=== PATIENT | female | born 1970 | race Caucasian/White ===

== ENCOUNTER → 2019-12-24 15:15 | Outpatient (CLI) | payer OTHER, SELFPAY ==
--- NOTE | 2019-12-24 15:18 | BI_ITS ---
MAMMOGRAPHY - BILATERAL SCREENING 3-D TOMOSYNTHESIS REASON FOR EXAM: Female, 49 years old. Routine screening PERTINENT HISTORY: FM HX MAT GMA 50''S, MAT AUNT 40, GAIN 20#, PT HAS HINDRONITIS -OIL GLAND CLOG - SEVERAL AREAS ON BREAST HEALING/SCARS. TECHNIQUE: 2-D mammograms and 3-D Tomosynthesis of the breast (s) were performed. CAD was performed. COMPARISON: 08/28/2017 FINDINGS: The breast composition is composed of scattered fibroglandular density. Stable pattern of more dense fiber glandular tissue in the right breast than the left. Scattered benign calcifications are seen. No dense spiculated masses or suspicious microcalcifications are identified. No architectural distortion is identified. There is no skin thickening or retraction. There has been no significant change since the prior study. BI/SCREEN MAMM (CAD) W/AUGUST BILAT IMPRESSION: No mammographic signs of malignancy. Routine yearly mammograms recommended. ASSESSMENT CATEGORY: BIRADS Category 2: Benign. A letter regarding these results will be sent to the patient by the facility within 30 days. FOLLOW UP RECOMMENDATION: Yearly follow up mammogram recommended. (A) Approximately 10% of breast cancers are not detected by mammography. A normal mammogram should not delay biopsy of a clinically suspicious abnormality. Electronically Signed: Isiah Manning MD at 10:32 EDT , Service support ,
== END ==
PROVIDERS: PCP Family Medicine; Referring Provider Registered Nurse; Visit Provider Registered Nurse
DX: Z12.31 Encounter for screening mammogram for malignant neoplasm of breast (principal)
CPT/HCPCS: 77063; 77067

== ENCOUNTER → 2020-12-29 11:05 | Outpatient (CLI) | payer OTHER, SELFPAY ==
--- NOTE | 2020-12-29 11:15 | MRI_ITS ---
STUDY: MRI RIGHT KNEE REASON FOR EXAM: Female, 50 years old. Anterior medial knee pain. Instability. Satin a pop. TECHNIQUE: Standardized fat and water weighted pulse sequences were obtained in all 3 orthogonal planes. COMPARISON: None. FINDINGS: Patellofemoral articular cartilage preserved. Lateral compartment articular cartilage preserved. Medial grade 2/3 cartilage loss. No acute fracture, dislocation or bone destruction. Lateral meniscus intact. Medial meniscal body/posterior horn oblique tear with small cyst formation (sagittal images 19 through 21 series 4 and coronal image 17). Region of cysts measures approximately 4 mm x 3 mm. Small volume joint effusion. No popliteal cyst. Mild soft tissue swelling. Normal medial collateral ligamentous complex (MCL). Normal distal semimembranosus, gracilis and semitendinosus tendons. Normal proximal tibiofibular articulation. Normal lateral collateral (fibular) ligament. Normal popliteus tendon. Normal biceps femoris tendon. Normal anterior cruciate ligament (ACL). Normal posterior cruciate ligament (PCL). Normal medial and lateral patellar retinaculum. Normal quadriceps tendon. Normal patellar tendon. Normal Hoffa''s fat pad. MRI/Lower Ext Joint Only (Routine) IMPRESSION: Medial meniscus body/posterior horn tear with small cyst formation Medial compartment mild/moderate cartilage loss Small joint effusion and mild swelling Electronically Signed: Wilbert Sandhu DO at 13:45 EDT Tel , Service support ,
== END ==
PROVIDERS: PCP Family Medicine; Visit Provider Orthopaedic Surgery
DX: M25.561 Pain in right knee (principal)
CPT/HCPCS: 73721

== ENCOUNTER → 2021-01-07 10:52 | Outpatient (CLI) | payer OTHER, SELFPAY ==
--- NOTE | 2021-01-07 10:58 | EKG12_ITS ---
Test Reason : PRE OP Blood Pressure : / mmHG Vent. Rate : 068 BPM Atrial Rate : 068 BPM P-R Int : 144 ms QRS Dur : 080 ms QT Int : 412 ms P-R-T Axes : 021 010 024 degrees QTc Int : 438 ms Normal sinus rhythm Normal ECG Confirmed by VIRGIE AYALA, WON ([id number]), commercial production editor JULIET MCCLENDON ([id number]) on 01/11/2021 8:27:13 AM Referred By: Radha Munson Confirmed By:JACQUELYN GARVIN MD
--- NOTE | 2021-01-07 10:58 | RAD_ITS ---
INDICATION: PREOP WASC EXAMINATION/TECHNIQUE: X-RAY - XR Chest 2 Views COMPARISON: 05/24/2017. FINDINGS: LINES/DEVICES: None. LUNGS: No consolidation, edema or effusion. No pneumothorax. MEDIASTINUM AND CARDIOVASCULAR STRUCTURES: Cardiac silhouette not enlarged. Central airways and mediastinal contour are unremarkable. BONES AND SOFT TISSUES: Unremarkable. RAD/Chest PA and Lateral IMPRESSION: No radiographic evidence of acute cardiopulmonary disease. Electronically Signed: Peter Serrano MD at 12:33 EDT Tel , Service support ,
[2021-01-07 12:26] LABS: Absolute Lymphocyte Count 1.98 X10^3/uL (0.83-4.51); Absolute Neutrophil Count 5.9 X10^3/uL (2.0-7.7); Basophil# 0.06 X10^3/uL; Basophil% 0.7 % (0-1); Eosinophil# 0.12 X10^3/uL; Eosinophils% 1.4 % (0-5); Hematocrit 42.2 % (37-47); Hemoglobin 13.9 g/dL (12.0-15.0); Lymphocyte # 1.98 X10^3/ul (0.83-4.51); Lymphocyte % 23.1 % (19-41); Mean Corp Hgb Conc 32.9 g/dL (32-36); Mean Corpuscular Volume 90.9 fL (81-99); Mean Platelet Vol. 10.3 fl (6.2-12.0); Monocyte# 0.53 X10^3/uL; Monocyte% 6.2 % (0-10); NRBC Flagged by Analyzer 0 % (0-5); Neutrophil # 5.87 X10^3/uL (2.7-7.7); Neutrophil % 68.3 % (47-70); Platelet Count 365 K/mm3 (150-450); RBC Distribution Width CV 12.9 % (11.6-14.6); RBC Distribution Width SD 42.5 fl (35.1-43.9); Red Blood Count 4.64 M/mm3 (4.2-5.4); White Blood Count 8.6 K/mm3 (4.4-11.0)
[2021-01-07 12:47] LABS: Anion Gap 2 (5-15); BUN 14 mg/dL (7-18); BUN/Creat Ratio 14.7 RATIO (10-20); Calcium,Total 9.2 mg/dL (8.5-10.1); Chloride 109 mmol/L (98-107); Creatinine, Serum 0.95 mg/dL (0.55-1.02); EST Glomerular Filtration Rate 65 mL/min (>60); Est Glom Filt Rate - Afr Amer 79 mL/min (>60); Glucose 94 mg/dL (74-106); Potassium 3.8 mmol/L (3.5-5.1); Sodium Level 141 mmol/L (136-145)
== END ==
PROVIDERS: PCP Family Medicine; Referring Provider Physician Assistant Surgical; Visit Provider Physician Assistant Surgical
DX: Z11.59 Encounter for screening for other viral diseases (principal); Z01.810 Encounter for preprocedural cardiovascular examination; Z01.818 Encounter for other preprocedural examination; U07.1 COVID-19
CPT/HCPCS: 36415; 71046; 80048; 85025; 87635; 93005; C9803; U0005; U0003

== ENCOUNTER 2021-11-25 11:30 | Outpatient (RCR) | payer OTHER, SELFPAY ==
--- NOTE | 2021-09-12 18:44 | HP.PTEVAL ---
Patient's Visit Information IVON JUAREZ is a 51 year old F referred to Physical Therapy by Dr. Doni Ramirez DO with a diagnosis of RAO KNEE OA. Date of Evaluation: 09/09/21 Physical Therapist: Sonali Lewis PT, Cert MDT - Visit Plan Frequency: 2x /Week Duration: 3 Months Plan: START SLOW AND TEST RE-ENTRY ONTO LAND AFTER FIRST 5-10 MINUTES (CASE CONFERENCE WITH AQUATIC CAR ESCORT TODAY). AQUATIC THERAPY FOR PAIN RELEIF, POSTURE CORE STRENGTHENING, GAIT TRAINING AND RAO LE ROM, STRETCHING AND STRENGTHENING. HEP INSTRUCTION. 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 LIFTS 45 TO 50 LBS. 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 STANDING AND WALKING. CURRENTLY OFF WORK FOR KNEES. HAS NOT WORKED SINCE DEC 22 2020 AND IS NOW ON [employer] THROUGH WORK. DISABILITY INTERVIEW PENDING NEXT WEEK. HAS BEEN THERE 13 YEARS. PATIENT REPORTS GOAL IS TO TRY TO RETURN TO CURRENT JOB. Present symptoms: CONSTANT RIGHT KNEE PAIN > LEFT. Present since: ~DEC 2018. Pain Scale: WORST 7/10, LEAST 3-4/10. Currently: 3/10. Commenced as a result of: RAN OFF PORCH STEPS AND CAME DOWN ON R KNEE WRONG AND FELT A SNAP/BURN. Worse: MOVING IN GENERAL, WIGGLING FOOT TO PUT IT IN TENNIS SHOE, GETTING TOE CAUGHT ON RUG. Better: NOTHING. Disturbed sleep: YES. Previous history/Previous treatment: DEC 2020 R KNEE MENISECTOMY PER PATIENT REPORT. CURRENTLY DOING LAND PT ONCE A WEEK AT [facility] AND PLANS TO CONTINUE (BRIDGET SETH X 2 VISITS). PATIENT REPORTS SHE HAS NERVE DAMAGE, PAIN AND SWELLING R LE FROM R KNEE SURGERY. PATIENT REPORTS SEEING DR. HEMPHILL AT [facility] AND TKR NOT RECOMMENDED. ALSO REPORTS HAVING SEEN DR. NORMAN - [facility] AND RECEIVING KNEE INJECTIONS JULY [address] HOLGUIN THAT DID NOT HELP. Gait: KNEES CRACK AND POP R>L. PAINFUL. NEAR FALLS FROM PAIN. Bowel or Bladder Dysfunction: PATIENT DENIES. Accidents: NO. Unexplained weight loss: NO. Imaging: RAO KNEE OA. PMH/Recent major surgery: FIRBROMYALGIA, HTN. OTHER: REPORTS SHE IS CURRENTLY IN A MAJOR FIBRO FLARE. PATIENT REPORTS HER LOW BACK DOESN'T HURT BUT SHE FEELS HEAT LEFT LOW BACK. SEES DR. PELLAGRINO FOR FIBROMYALGIA. - Objective Sitting/Standing Posture: POOR. STANDS IN ANTERIOR PELVIC TILT. Other Observations: THIS PATIENT AMBULATES INDEP'LY INTO PT WITH DECREASED CADANCE AND LIMPING ON HER RIGHT LE. Sensory deficit: HYPERSENSATIVITY WITH LIGHT TOUCH SENSATION TESTING RAO LE'S. ROM deficit: R KNEE AROM IN SUPINE WITH A HEEL SLIDE -20 EXT TO 80 DEG FLEX, L KNEE FULL EXT TO 95 DEG FLEX. Motor deficit: R LE: HIP 4-/5, KNEE 3-/5, ANKLE 5/5. L LE: HIP 4/5, KNEE 4-/5, ANKLE 5/5. Core strength: POOR. Circumference Measurements: PATELLA: R 55 CM, L 47 CM. 6 ABOVE PATELLA: R 67 CM, L 64.5 CM. Palpation: PATIENT REFUSED. - Balance/Special Test Scores Lower Extremity Functional Score: 21 - Goals Goal 1:: DECREASE C/O RAO KNEE PAIN Goal Time Frame: 4-6 Weeks Goal 2:: INCREASE PAINFREE ROM OF RAO KNEES TO EASE ADL'S. Goal Time Frame: 4-6 Weeks Goal 3:: INCREASE RAO LE STRENGTH TO EASE ADL'S. Goal Time Frame: 4-6 Weeks Goal 4:: PATIENT WILL BE INDEP WITH HOME AND WATER EX PROGRAMS FOR CONTINUED IMPROVEMENT ONCE FORMAL PHYSICAL THERAPY CONCLUDES. Goal Time Frame: 4-6 Weeks - Anticipated Interventions Patient/Client Instruction: Educate patient on: Condition, Plan of Care, Risk Factors For the Purpose of:: To improve self management Therapeutic Exercise to Include: Strength training, Flexibilty training, Gait and locomotor training, Neuromotor development, In an aquatic setting For the Purpose of:: To decrease pain, To increase ROM, To improve muscle performance and motor function, To increase tolerance to activity/condition/position, To improve ability of physical actions for home/community/work/leisure, To improve gait and locomotor functions Thank you for the opportunity to evaluate your patient. For Medicare and Medicare HMO plans, please review the plan of care and approve it. It will need to be FAXED BACK to us at [phone] for Medicare purposes. For Medicare only, by signing this I certify the plan of care. Please let me know if there are questions or concerns regarding this plan of care. Physician Signature: Date:
--- NOTE | 2021-10-24 14:07 | HP.PTREVAL ---
Dr. Doni Ramirez, DO, It has been my pleasure to treat IVON JUAREZ over the last 11 visits for RAO KNEE OA. Please see the progress note below for an update on the physical therapy plan of care! Subjective: PATIENT REPORTS THAT THE STIFFNESS IN HER LEFT KNEE HAS IMPROVED SINCE STARTING POOL THERAPY. PATIENT REPORTS HER RIGHT KNEE ISN'T ANY BETTER OVER-ALL (EXCEPT MAYBE THE SWELLING). PATIENT REPORTS HER BACK AND KNEES FEEL BETTER WHILE SHE IS IN THE POOL BUT ALMOST ALL HER PROBLEMS RETURN WHEN SHE GETS BACK ON LAND. PATIENT DENIES ANY INCREASED PAIN OR PROBLEMS SINCE STARTING AQUATIC THERAPY. PATIENT REPORTS HER MOM THINKS POOL THERAPY IS HELPING HER BECAUSE IT LOOKS TO HER LIKE SHE IS GETTING AROUND A LITTLE BETTER. Objective/Function: PATIENT WAS SEEN TODAY FOR RE-ASSESSMENT OF PROGRESS TOWARD THE SET PT GOALS AND THE NEED FOR FURTHER PHYSICAL THERAPY VS READINESS FOR DISCHARGE. PATIENT WITH LESS LE SENSATIVITY AND DECREASED CIRCUMFERENCE MEASUREMENTS TODAY. L KNEE DECREASED FLEXION TODAY COMPARED TO INITIAL EVAL BUT OVER-ALL PATIENT IS REPORTING LESS L KNEE STIFFNESS. PATIENT APPEARS TO BE A GOOD CANDIDATE TO CONTINUE AQUATIC THERAPY BASED ON PROGRESS AND ROOM FOR MORE PROGRESS AND EX PROGRESSION BEFORE DISCHARGING TO [facility] PROGRAM. PATIENT IS AGREEABEL. UPON EXAM TODAY: Sitting/Standing Posture: POOR. STANDS IN ANTERIOR PELVIC TILT. Other Observations: THIS PATIENT AMBULATES INDEP'LY INTO PT WITH DECREASED CADANCE AND LIMPING ON HER RIGHT LE. Sensory deficit: HYPERSENSATIVITY WITH LIGHT TOUCH SENSATION TESTING RAO LE' BUT PATIENT LESS RELUCTANT WITH TESTING TODAY. ROM deficit: R KNEE AROM IN SUPINE WITH A HEEL SLIDE -16 EXT TO 81 DEG FLEX, L KNEE FULL EXT TO 80 DEG FLEX. Motor deficit: R LE: HIP 4-/5, KNEE 3-/5, ANKLE 5/5. L LE: HIP 4/5, KNEE 4-/5, ANKLE 5/5. RAO EHL 5/5. Core strength: POOR. Circumference Measurements: PATELLA: R 49 CM, L 46 CM. 6 ABOVE PATELLA: R 65.5 CM, L 63.5 CM. Plan Plan: CONTINUE AQUATIC THERAPY 2X'S A WEEK X 3-4 WEEKS TO PROGRESS [facility] PROGRAM TOLERATED WORKING TOWARD SAME GOALS. Balance/Gait/Functional tests - Balance/Special Test Scores Lower Extremity Functional Score: 20 Goals Goal 1:: DECREASE C/O RAO KNEE PAIN Goal Time Frame: 4-6 Weeks Goal Progress: Not Progressing Goal 2:: INCREASE PAINFREE ROM OF RAO KNEES TO EASE ADL'S. Goal Time Frame: 4-6 Weeks Goal Progress: Not Progressing Goal 3:: INCREASE RAO LE STRENGTH TO EASE ADL'S. Goal Time Frame: 4-6 Weeks Goal Progress: Not Progressing Goal 4:: PATIENT WILL BE INDEP WITH HOME AND WATER EX PROGRAMS FOR CONTINUED IMPROVEMENT ONCE FORMAL PHYSICAL THERAPY CONCLUDES. Goal Time Frame: 4-6 Weeks Goal Progress: Progressing Anticipated Interventions Patient/Client Instruction: Educate patient on: Condition, Plan of Care, Risk Factors For the Purpose of:: To improve self management Therapeutic Exercise to Include: Strength training, Flexibilty training, Gait and locomotor training, Neuromotor development, In an aquatic setting For the Purpose of:: To decrease pain, To increase ROM, To improve muscle performance and motor function, To increase tolerance to activity/condition/position, To improve ability of physical actions for home/community/work/leisure, To improve gait and locomotor functions Please do not hesitate to contact me at [phone] by phone or if you have questions or concerns regarding this new plan of care! Sincerely, Sonali Lewis, PT, Cert MDT
--- NOTE | 2021-11-25 12:11 | HP.PTDCSUM ---
It has been my pleasure to treat IVON JUAREZ referred by Dr. Doni Ramirez DO, with the diagnosis of RAO KNEE OA for a total of 18 visit(s). Discharge Date: 11/25/21 Please see the following information for a summary of their discharge status. Subjective: PATIENT REPORTS SHE NO LONGER PLANS TO GO BACK TO HER PRIOR JOB BASED ON PHYSICIAN RECOMMENDATIONS. SHE PLANS TO LOOK FOR LESS PHYSICAL WORK AT THIS POINT. PATIENT REPORTS SHE IS GLAD SHE CONTINUED WATER THERAPY AND NOW FEELS READY TO CONTINUE ON HER OWN. RLE Pain Intensity (Out of 10): 6 LLE Pain Intensity (Out of 10): 6 Lumbar Spine Pain Intensity (Out of 10): 3 % Improvement: 20 Objective/Function: PATIENT WAS SEEN TODAY FOR RE-ASSESSMENT OF PROGRESS TOWARD THE SET PT GOALS AND THE NEED FOR FURTHER PHYSICAL THERAPY VS READINESS FOR DISCHARGE. RAO KNEE SWELLING SHOWES DECREASE WITH CIRCUMFRENCE MEASUREMENTS BELOW AND HER KNEES ARE BENDING A LITTLE BETTER BUT OVER ALL LE FUNCTIONAL STRENGTH AND ROM IS NOT CHANGING SIGNIFICANTLY. SHE IS INDEP WITH A WATER EX PROGRAM. UPON EXAM TODAY: Sitting/Standing Posture: POOR. STANDS IN ANTERIOR PELVIC TILT. Other Observations: THIS PATIENT AMBULATES INDEP'LY INTO PT WITH DECREASED CADANCE AND LIMPING ON HER RIGHT LE. Sensory deficit: PATIENT STILL HAS SENSATIVITY WITH SENSATION TESTING OF RAO LE'S BUT OVER ALL HAS IMPROVED SINCE STARTING PT (EXCEPT R FOOT - TOE FX). ROM deficit: R KNEE AROM IN SUPINE WITH A HEEL SLIDE -16 EXT TO 84 DEG FLEX, L KNEE FULL EXT TO 85 DEG FLEX. Motor deficit: R LE: HIP 4-/5, KNEE 3-/5, ANKLE 5/5. L LE: HIP 4/5, KNEE 4-/5, ANKLE 5/5. RAO EHL 5/5. Core strength: POOR. Circumference Measurements: PATELLA: R 46.5 CM, L 43CM. 6 ABOVE PATELLA: R 64.5 CM, L 63.0 CM. Goal 1:: DECREASE C/O RAO KNEE PAIN Goal Progress: Not Progressing Goal 2:: INCREASE PAINFREE ROM OF RAO KNEES TO EASE ADL'S. Goal Progress: Not Progressing Goal 3:: INCREASE RAO LE STRENGTH TO EASE ADL'S. Goal Progress: Not Progressing Goal 4:: PATIENT WILL BE INDEP WITH HOME AND WATER EX PROGRAMS FOR CONTINUED IMPROVEMENT ONCE FORMAL PHYSICAL THERAPY CONCLUDES. Goal Progress: Goal Met Plan: D/C TO INDEP WATER EX. PATIENT IS AGREEABLE. If there are questions or concerns regarding this patient's physical therapy, please feel free to call me at [phone]. Thank you for the referral of this patient. Sincerely, Sonali Lewis, PT, Cert MDT Balance/Gait/Functional tests - Balance/Special Test Scores Lower Extremity Functional Score: 20
== END 2021-11-25 13:40 | disposition home or self-care (01) ==
LOC: PT 11:30
PROVIDERS: PCP Family Medicine; Referring Provider Orthopaedic Surgery; Visit Provider Orthopaedic Surgery
DX: M17.0 Bilateral primary osteoarthritis of knee (principal)
CPT/HCPCS: 97113; 97162; 97164

== ENCOUNTER 2022-07-08 15:03 | Emergency (ER) | payer MEDICAID, SELFPAY ==
[2022-07-08 15:04] VITALS: BP 134/116; PULSE 83; RESP 18; TEMP 36.3; O2SAT 98; BMI 38.2
--- NOTE | 2022-07-08 15:17 | ED.VIS.FEGU ---
HPI <HELDER Orr - Last Filed: 07/08/22 15:57> HPI - Female History of Present Illness Chief Complaint: Complaint Narrative Narrative: 52-year-old female presents with 4 days of slight burning with urination. Yesterday after wiping she noticed a pink tinge on the toilet paper. Today she started having blood clots with urination and pressure from her umbilical area to the suprapubic region. She went to urgent care and UA showed blood and she was sent here. She took some old Pyridium she had on hand which helped her symptoms. PFSH <HELDER Orr - Last Filed: 07/08/22 15:57> [facility] Medical History (Updated 07/08/22 @ 15:49 by HELDER Orr) depo progesterone Ectopic Hiatal hernia reflux endoscopy dwayneNovember 2010 neg Home Medications dextroamphetamine-amphetamine ER 30 mg 24hr capsule,extend release (Adderall XR) 30 mg PO DAILY 05/24/17 [History Last Taken 05/23/17] duloxetine 60 mg capsule,delayed release 60 mg PO DAILY 05/24/17 [History Last Taken 05/23/17] omeprazole 20 mg capsule,delayed release 20 mg PO DAILY 05/24/17 [History Last Taken 05/23/17] tizanidine 4 mg tablet 4 mg PO DAILY 05/24/17 [History Last Taken 05/23/17] cephalexin 500 mg capsule 500 mg PO Q12 #14 CAPSULES 07/08/22 [Rx Last Taken Unknown] phenazopyridine 100 mg tablet (Pyridium) 100 mg PO TID 2 days #6 tabs 07/08/22 [Rx Last Taken Unknown] Allergy/AdvReac Type Severity Reaction Status Date / Time Opioids - Morphine Analogues AdvReac Nausea Verified 07/08/22 15:07 [narcotics] Family History Other Breast cancer Hypertension Migraine Prostate cancer Surgical History (Updated 07/08/22 @ 15:12 by Dat Pratt) H/O: hysterectomy Social History Smoking Status: Former smoker ROS <HELDER Orr - Last Filed: 07/08/22 15:57> ROS ED ROS Narrative Constitutional: Negative for fever, chills, malaise. CVS: Negative for palpitations, chest pain, syncope. Respiratory: Negative for shortness of breath, cough. GI: Positive for abdominal pain. Negative for nausea, vomiting, diarrhea, constipation, melena, hematochezia. : Positive for dysuria, hematuria. Skin: Negative for rash, abscess, or wound. EXAM <HELDER Orr - Last Filed: 07/08/22 15:57> Physical Exam Narrative Exam Narrative: CONST: Patient sitting in no acute distress. EYES: Normal inspection. NECK: Normal inspection. RESP: No respiratory distress, CTAB. CVS: Regular rate and rhythm, no murmur, no gallop. ABD: Soft with minimal suprapubic tenderness, no guarding or rebound, nondistended. Back: Normal inspection, no CVA tenderness. SKIN: Color normal, no rash, warm, dry, intact. EXTREMITIES: Normal appearance, no pedal edema. NEURO: Oriented x4. PSYCH: Normal affect. Const Vital Signs: 07/08/22 15:04 07/08/22 15:57 Temperature 97.4 F L 97.8 F Temperature Source Temporal Pulse Rate 83 78 Respiratory Rate 18 16 Blood Pressure 134/116 H 134/78 H Blood Pressure Mean 122 Pulse Ox 98 100 Oxygen Delivery Method Room Air <Dr. Dino Ayala MD - Last Filed: 07/08/22 16:08> Physical Exam Const Vital Signs: 07/08/22 15:04 07/08/22 15:57 Temperature 97.4 F L 97.8 F Temperature Source Temporal Pulse Rate 83 78 Respiratory Rate 18 16 Blood Pressure 134/116 H 134/78 H Blood Pressure Mean 122 Pulse Ox 98 100 Oxygen Delivery Method Room Air MDM <HELDER Orr - Last Filed: 07/08/22 15:57> [facility] Narrative Medical decision making narrative: Patient has dysuria with hematuria and blood clots. She appears well and nontoxic with normal vital signs. She has slight suprapubic tenderness on exam with an otherwise benign abdominal exam. No CVA tenderness. UA is nitrite positive with > 100 red and white blood cells consistent with hemorrhagic cystitis. Urine cultures pending. I do not think she has a kidney stone or pyelonephritis as she has no flank pain or tenderness on exam. I prescribed Keflex and Pyridium with first dose given here. She was discharged in stable condition. Test considered but not ordered: Considered a CT flank but she has no signs or symptoms of kidney stone or pyelonephritis. Lab Data Labs: Laboratory Results - last 24 hr 07/08/22 15:30 Urine Color SEE COMMENT BELOW Urine Clarity Cloudy Urine pH 5.0 Ur Specific [place] 1.020 Urine Protein 100 H Urine Glucose (UA) Normal Urine Ketones Negative Urine Occult Blood 250 H Urine Nitrite Positive H Urine Bilirubin 6 H Urine Urobilinogen 8 H Ur Leukocyte Esterase 25 H Urine RBC > 100 SEEN Urine WBC >100 SEEN Ur Squamous Epith Cells 0-5 SEEN Urine Bacteria RARE Urine Mucus 0 SEEN <Dr. Dino Ayala MD - Last Filed: 07/08/22 16:08> [facility] MDM Narrative Medical decision making narrative: Patient has dysuria with hematuria and blood clots. She appears well and nontoxic with normal vital signs. She has slight suprapubic tenderness on exam with an otherwise benign abdominal exam. No CVA tenderness. UA is nitrite positive with > 100 red and white blood cells consistent with hemorrhagic cystitis. Urine cultures pending. I do not think she has a kidney stone or pyelonephritis as she has no flank pain or tenderness on exam. I prescribed Keflex and Pyridium with first dose given here. She was discharged in stable condition. Test considered but not ordered: Considered a CT flank but she has no signs or symptoms of kidney stone or pyelonephritis. I have personally performed a face to face assessment of the patient and have reviewed the LUZMA Note. I performed a substantive portion of the visit including all aspects of the following. My haney findings include: History is [52-year-old female that I am evaluate with our PA. Has hematuria and dysuria. Urgent care they were concerned with the hematuria and sent her in the emergency department. No flank pain. No fever. No vomiting.] Exam is [well-appearing middle-aged female. Vital signs stable afebrile. HEENT exam unremarkable. Moist with membranes. Lungs clear. Heart regular rhythm. Abdomen soft nontender. Moving all 4 extremities. Back nontender no flank pain. Neurologic exam normal.] Medical Decision Making [patient with gross hematuria most likely secondary to UTI. Urinalysis shows 250 occult blood positive nitrates. 100 whites greater than 100 reds rare bacteria. A culture was sent. She will be treated with Keflex and outpatient follow-up. If she is not improving she can follow-up with urology if she has continued hematuria.] Other additions or changes: [None] Lab Data Labs: Laboratory Results - last 24 hr 07/08/22 15:30 Urine Color SEE COMMENT BELOW Urine Clarity Cloudy Urine pH 5.0 Ur Specific [place] 1.020 Urine Protein 100 H Urine Glucose (UA) Normal Urine Ketones Negative Urine Occult Blood 250 H Urine Nitrite Positive H Urine Bilirubin 6 H Urine Urobilinogen 8 H Ur Leukocyte Esterase 25 H Urine RBC > 100 SEEN Urine WBC >100 SEEN Ur Squamous Epith Cells 0-5 SEEN Urine Bacteria RARE Urine Mucus 0 SEEN Discharge Plan Triage Chief Complaint: Complaint ED Midlevel Provider: Amy Sanchez ED Provider: Dino Ayala Dx/Rx/DC Orders Clinical Impression: Acute hemorrhagic cystitis Instructions: ED Cystitis Female Adult Prescriptions: New cephalexin 500 mg capsule 500 mg PO Q12 Qty: 14 0RF phenazopyridine [Pyridium] 100 mg tablet 100 mg PO TID 2 Days Qty: 6 0RF No Action tizanidine 4 MG tablet 4 mg PO DAILY Label Comments: take 1/2 to 1 tablet by mouth if needed at bedtime omeprazole 20 MG capsule,delayed release(DR/EC) 20 mg PO DAILY Label Comments: take 2 capsules by mouth once daily dextroamphetamine-amphetamine [Adderall XR] 30 MG capsule,extended release 24hr 30 mg PO DAILY Label Comments: take 1 capsule by mouth every morning duloxetine 60 MG capsule 60 mg PO DAILY Primary Care Provider: Tyree Rhodes Referrals: Tyree Rhodes MD [Primary Care Provider] - Disposition Disposition: Home, Self Care
[2022-07-08 15:38] LABS: Mucous, Urine 0 SEEN /hpf (<or=2+)
[2022-07-08 15:45] LABS: Glucose, Dipstick Normal (Normal); Ketone-Dipstick Negative (Negative); Leukocyte Esterase-Dipstick 25 /ul (Negative); Nitrite-Dipstick Positive (Negative); Occult Blood-Urine 250 /ul (Negative); Protein-Dipstick 100 mg/dl (Negative); Urine Clarity Cloudy (Clear); Urine Urobilinogen 8 mg/dl (Normal)
[2022-07-08 15:48] LABS: Color, Urine SEE COMMENT BELOW (Yellow); Urine Bilirubin Dipstick 6 mg/dL (Negative)
[2022-07-08 15:55] LABS: Bacteria RARE /hpf (None Seen); Red Blood Cells-Urine > 100 SEEN /hpf (0-5); Squamous Epithelial Cells - UA 0-5 SEEN /hpf (5-10); White Blood Cells >100 SEEN /hpf (0-5)
[2022-07-08 15:57] VITALS: BP 134/78; PULSE 78; RESP 16; TEMP 36.6; O2SAT 100
[2022-07-08] MEDS: Cephalexin 250 MG Capsule 500 MG PO (16:02)
== END 2022-07-08 16:42 | disposition home or self-care (01) ==
PROVIDERS: Physician Assistant; Emergency Provider Emergency Medicine; PCP Family Medicine; Visit Provider Emergency Medicine
DX: N30.91 Cystitis, unspecified with hematuria (principal); Z87.891 Personal history of nicotine dependence
CPT/HCPCS: 81001; 87086; 87088; 99283